=== PATIENT | male | born 1975 | race Caucasian/White ===

== ENCOUNTER 2017-04-15 14:39 | Day surgery (SDC) | payer BC ==
--- NOTE | 2017-04-15 15:08 | PDANEPAE ---
ANE History of Present Illness 41 yo M c/o blood in stool here for screening colo ANE Past Medical History - Cardiovascular History Hx Hypertension: No Hx Arrhythmias: No Hx Chest Pain: No Hx Coronary Artery / Peripheral Vascular Disease: No Hx CHF / Valvular Disease: No Hx Palpitations: No Cardiovascular History Comment: HX PVCs,SSS. DR TOMLINSON - Pulmonary History Hx COPD: No Hx Asthma/Reactive Airway Disease: Yes Hx Recent Upper Respiratory Infection: No Hx Oxygen in Use at Home: No Hx Sleep Apnea: Yes Sleep Apnea Screening Result - Last Documented: Positive Pulmonary History Comment: SLEEP APNEA SEVERE OBSTRUCTIVE. W/CPAP. ENVIRONMENTAL ALLERGIES - Neurologic History Hx Cerebrovascular Accident: No Hx Seizures: No Hx Dementia: No Neurologic History Comment: VISUAL DISTORTIONS ON OCCASION - Endocrine History Hx Diabetes: No - Renal History Hx Renal Disorders: No - Liver History Hx Hepatic Disorders: No - Neurological & Psychiatric Hx Hx Neurological and Psychiatric Disorders: Yes Neurological / Psychiatric History Comment: ANXIETY & DEPRESSION - Cancer History Hx Cancer: No - Congenital Disorder History Hx Congenital Disorders: No - GI History Hx Gastrointestinal Disorders: No - Other Health History Other Health History: ECZEMA W/ALLERGIES - Chronic Pain History Chronic Pain: Yes (BACK PAIN, R KNEE) - Surgical History Prior Surgeries: ING HERNIA SHIVAM. SINUS SURG ANE Review of Systems - Exercise capacity Exercise capacity: >=4 METS METS (RN): 5 METS ANE Patient History - Allergies Allergies/Adverse Reactions: ciprofloxacin [From Cipro] Adverse Reaction (Severe, Verified 04/11/17 16:47) TENDON PAIN ENVIRONMENTAL Adverse Reaction (Uncoded 10/22/13 21:27) SNEEZING,WATERY EYES - Home Medications Home medications: home medication list seen and reviewed Home Medications: Citalopram [celeXA 20 MG (RX)] 20 mg PO DAILY 05/30/12 [Last Taken 05/30/12] Albuterol 5 mg/ml INH 04/11/17 [Last Taken Unknown] Herbals/Supplements -Info Only 04/11/17 [Last Taken Unknown] Singulair 04/11/17 [Last Taken Unknown] Symbicort 160-4.5 Mcg Inh (*) 04/11/17 [Last Taken Unknown] Zyrtec 04/11/17 [Last Taken Unknown] - NPO status NPO Status: no food or drink >8 hours - Anes Hx Hx Anesthesia Complications (with details): h/o 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 after sinus surgery - Smoking Hx Smoking Status: Never smoked - Alcohol Use Alcohol Use: Rarely - Family Anes Hx Family Anes Hx: none Family Hx Anesthesia Complications: NEG ANE Labs/Vital Signs - Vital Signs Vital Signs: reviewed preoperatively; see RN documention for details Height: 177.8 cm Weight: 95.254 kg ANE Physical Exam - Airway Neck exam: FROM Mallampati Score: Class 2 Mouth exam: normal dental/mouth exam - Pulmonary Pulmonary: no respiratory distress, clear to auscultation - Cardiovascular Cardiovascular: regular rate and rhythym, no murmur, rub, or gallop - ASA Status ASA Status: III ANE Anesthesia Plan Anesthesia Plan: GA with mask Total IV Anesthesia: Yes
[2017-04-15] MEDS ORDERED: LIDOCAINE 1% 2 ML INJ ONE (15:09)
[2017-04-15] MEDS ORDERED: LIDOCAINE 1% 2 ML INJ ID PRN (15:26)
[2017-04-15] MEDS ORDERED: LR 1,000 ML IV ONE (15:26)
[2017-04-15] MEDS ORDERED: IPRATROPIUM/ALBUTEROL 3 ML DEYVIAL ONE (15:40)
[2017-04-15] MEDS ORDERED: IPRATROPIUM/ALBUTEROL 3 ML DEYVIAL IH ONE (16:00)
[2017-04-15] MEDS ORDERED: PROPOFOL/EMULSION 500 MG/50 ML BOTTLE IV ONE (16:24)
[2017-04-15] MEDS ORDERED: NALOXONE HCL 0.4 MG/ML INJ IVP PRN (16:27)
[2017-04-15] MEDS ORDERED: ONDANSETRON 4 MG/2 ML VIAL IVP PRN (16:27)
[2017-04-15] MEDS ORDERED: ACETAMINOPHEN 500 MG TAB PO PRN (16:27)
--- NOTE | 2017-04-15 16:32 | PDGENHP ---
History & Physical Chief Complaint: brbpr History of Present Illness: 41 year old male presents for evaluation of blood in stools. Pertinent Past, Social, Family History: FaMHx: No CRC 1st degree. PMHx: asthma Relevant Physical Exam: HEENT: anicteric. CV RRR +s1s2. Lungs CTAB. Abd; soft , nt Cardiorespiratory Assessment: ASA 3
--- NOTE | 2017-04-15 16:53 | POSTOPPROG ---
Post Op Note Date of Operation: 04/15/17 Surgeon: Chavo Pompa Anesthesia: IV Sedation Pre-op Diagnosis: BRBPR Post-op Diagnosis: internal hemorrhoids, ac polyp Indication: BRBPR Procedure: colonoscopy with snare Findings: ac polyp , hemorrhoids Inf/Abcess present in the surg proc area at time of surgery?: No EBL: Minimal Specimen(s): ac polyp
[2017-04-15 17:08] VITALS: PULSE 82
--- NOTE | 2017-04-15 17:11 | GPN ---
[f rep st] PROCEDURE NOTE DATE OF PROCEDURE: 04/15/2017 PROCEDURE: Colonoscopy with snare polypectomy. INDICATIONS: The patient is a 41-year-old male who presents for evaluation of bright red blood per rectum. CONSENT: Risks, benefits, and alternatives of the procedure were discussed in great detail with the patient. Risks of infection, bleeding, perforation, and sedation were discussed. All questions answered and informed consent was obtained. MEDICATIONS: Propofol. Please see Anesthesiology for details. ESTIMATED BLOOD LOSS: Insignificant. COLONOSCOPIC EVALUATION: A rectal exam was performed and small internal hemorrhoids were appreciated. The Olympus colonoscope was introduced into the rectum and advanced to cecum, where the ileocecal valve and appendiceal orifice were seen. The terminal ileum was intubated, and was normal in appearance. The quality of prep was good. In the ascending colon, a 6 mm flat carpet-like polyp was seen and removed by snare polypectomy. IMPRESSION: 1. Ascending colon polyp- status post snare polypectomy. 2. Hemorrhoids. 3. Suspect cause of bleeding is hemorrhoidal. RECOMMENDATIONS: 1. Follow up on biopsy results. 2. Repeat colonoscopy in 5 years if this is adenomatous. 3. Fiber supplementation. 4. No straining during bowel movements. /[id number]/MODL MTDD
[2017-04-15 17:23] VITALS: TEMP 97.5
[2017-04-15 17:31] VITALS: RESP 10
[2017-04-15 18:25] VITALS: BP 108/55; O2SAT 98
--- NOTE | 2017-04-15 21:24 | POSTANESTH ---
Post Anesthetic Evaluation Cardiovascular Status: Normal, Stable, Similar to Pre-Op Cond Respiratory Status: Normal, Stable, Similar to Pre-op Cond. Level of Consciousness/Mental Status: Can Participate in Eval, Alert and Oriented Pain Control: Adequate, Prn Tx Ordered Nausea/Vomiting Control: Adequate, Prn Tx Ordered Complications Possibly Related to Anesthesia: None Noted
== END 2017-04-15 18:12 | disposition home or self-care (01) ==
LOC: FSGY 14:39
PROVIDERS: ATTEND Internal Medicine Gastroenterology
PROC: 0DBK8ZX Excision of Ascending Colon, Via Natural or Artificial Opening Endoscopic, Diagnostic (ICD-10-PCS; principal; 2017-04-15 16:00)
DX: K64.8 Other hemorrhoids (principal); D12.2 Benign neoplasm of ascending colon; J45.909 Unspecified asthma, uncomplicated
CPT/HCPCS: J2704